=== PATIENT | male | born 1995 | race Caucasian/White ===

== ENCOUNTER → 2025-07-06 11:03 | Outpatient (REF) | payer OTHER, SELFPAY | LOC: MRI 3T 11:03 | PROVIDERS: ATTENDING PHYSICIAN Physician Assistant | DX: G44.52 New daily persistent headache (NDPH) (principal); R20.2 Paresthesia of skin | CPT/HCPCS: 70553; A9575 ==

== ENCOUNTER → 2025-08-14 12:50 | Outpatient (REF) | payer OTHER, SELFPAY | LOC: HWRAD 12:50 | PROVIDERS: ATTENDING PHYSICIAN Internal Medicine Nephrology; FAMILY PHYSICIAN Family Medicine | DX: R35.0 Frequency of micturition (principal) | CPT/HCPCS: 76770 ==